=== PATIENT | female | born 1990 | race African-American/Black ===

== ENCOUNTER 2017-12-18 17:48 | Emergency (ER) | payer MEDICAID ==
[~2017-12-18] VITALS: Ht 167.6 cm; Wt 67.0 kg
[2017-12-18 20:55] LABS: HCG SCREEN NEGATIVE
[2017-12-18] MEDS ORDERED: FLUCONAZOLE 150MG TABLET PO NR (23:00)
[2017-12-18 23:38] VITALS: BP 110/73
[2017-12-22 04:17] LABS: CHLAMYDIA TRACHOMATIS NAA Negative (Negative); NEISSERIA GONORRHOEAE NAA Negative (Negative)
== END 2017-12-18 23:39 | disposition home or self-care (01) ==
LOC: ER 17:48
DX: N89.8 Other specified noninflammatory disorders of vagina (principal); B37.9 Candidiasis, unspecified
CPT/HCPCS: 81025; 84703; 87210; 87491; 87591; 99284